=== PATIENT | female | born 1955 | race Caucasian/White ===

== ENCOUNTER 2023-03-11 12:53 | Emergency (ER) | payer MEDICARE ==
[~2023-03-11] VITALS: Ht 162.6 cm; Wt 61.2 kg
[~2023-03-11 12:53] MED LIST: AMIODARONE HCL200 MG PO; ASPIRIN CHEW81 MG PO; ATORVASTATIN CA40 MG PO; ELIQUIS5 MG PO; GABAPENTIN300 MG PO; HYDROCODON-ACE1 EAC9 PO; HYDROXYZINE HCL25 MG PO; METOPROLOL TART50 MG PO; PANTOPRAZOLE SO40 MG PO; ROPINIROLE HC0.25 MG PO; SERTRALINE HCL100 MG PO; SPIRIVA18 MCG IH; VENTOLIN HFA18 GM INH
[2023-03-11 14:05] LABS: BASOPHILS # (AUTO) 0.1 (0.0-0.1); BASOPHILS % 1.8 % (0.0-1.0); EOSINOPHILS # (AUTO) 0.3 (0.0-0.4); HEMATOCRIT 24.8 % (34.2-44.1); HEMOGLOBIN 7.8 g/dL (12.0-16.0); LYMPHOCYTES # (AUTO) 1.4 (1.0-3.2); MEAN CORPUSCULAR HGB CONC 31.5 g/dL (31-35); MEAN CORPUSCULAR VOLUME 82.7 fL (81-99); MONOCYTES # (AUTO) 0.5 (0.2-0.8); MONOCYTES % 9.1 % (4.4-11.3); NEUTROPHILS # (AUTO) 2.8 (2.1-6.9); NEUTROPHILS % 55.9 % (38.7-80.0); PLATELET COUNT 400 x10e3/uL (140-360); RED CELL DISTRIBUTION WIDTH 16.3 % (11.7-14.4); WHITE BLOOD COUNT 5.03 x10e3/uL (4.8-10.8)
[2023-03-11 14:29] LABS: ALBUMIN 3.7 g/dL (3.5-5.0); ALBUMIN/GLOBULIN RATIO 1.2 (0.8-2.0); ANION GAP 10.1 mmol/L (8-16); CALCIUM 8.9 mg/dL (8.4-10.2); CREATININE, SERUM 0.84 mg/dL (0.57-1.11); MAGNESIUM 2.1 MG/DL (1.3-2.1); POTASSIUM 4.1 mmol/L (3.5-5.1)
[2023-03-11 15:00] VITALS: O2SAT 100
== END 2023-03-11 15:16 | disposition home or self-care (01) ==
LOC: ER 13:01
DX: R06.02 Shortness of breath (principal); D64.9 Anemia, unspecified; R53.83 Other fatigue; I10 Essential (primary) hypertension; I48.91 Unspecified atrial fibrillation; K21.9 Gastro-esophageal reflux disease without esophagitis; G62.9 Polyneuropathy, unspecified; G25.81 Restless legs syndrome
CPT/HCPCS: 36415; 71045; 80053; 83735; 85025; 93005; 99283